=== PATIENT | female | born 2000 | race Caucasian/White ===

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

== ENCOUNTER 2021-11-04 17:29 | Outpatient (REF) | payer OTHER, SELFPAY ==
[2021-11-07 13:42] LABS: Chlamydia Result Negative (Negative); GC Result Negative (Negative)
== END 2021-11-04 17:30 | disposition home or self-care (01) ==
LOC: NCHCN 17:29
PROVIDERS: PCP Family Medicine; Visit Provider Family Medicine
DX: Z00.00 Encounter for general adult medical examination without abnormal findings (principal); Z11.3 Encounter for screening for infections with a predominantly sexual mode of transmission
CPT/HCPCS: 87491; 87591

== ENCOUNTER 2022-11-22 18:47 | Outpatient (REF) | payer OTHER, SELFPAY ==
[2022-11-22 21:40] LABS: HCT 40.4 % (36.0-46.0); HGB 12.8 g/dL (11.2-15.7); MCHC 31.7 % (32.0-36.0); MCV 85 fL (80-95); MPV 10.4 fL (8.0-11.0); Platelet Count 306 10^3/uL (130-400); RBC 4.74 10^6/uL (3.93-5.22); RDW 15.7 % (11.7-14.6); RDW-SD 48.7 fL; WBC 7.24 10^3/uL (4.4-10.8)
[2022-11-22 22:02] LABS: TSH (W/Ref FT4) 1.16 uIU/mL (0.36-3.74)
[2022-11-22 22:08] LABS: Hemoglobin A1C 5.4 % (<5.7)
== END 2022-11-22 18:48 | disposition home or self-care (01) ==
LOC: NCHCN 18:47
PROVIDERS: PCP Family Medicine; Visit Provider Family Medicine
DX: Z00.00 Encounter for general adult medical examination without abnormal findings (principal); R53.83 Other fatigue; Z13.1 Encounter for screening for diabetes mellitus
CPT/HCPCS: 85027; 83036; 84443